=== PATIENT | female | born 1995 | race Caucasian/White ===

== ENCOUNTER 2023-02-23 22:11 | Emergency (ER) | payer BC, SELFPAY ==
[2023-02-23 22:28] VITALS: BP 152/91; PULSE 100; RESP 18; TEMP 36.6; O2SAT 100; BMI 23.9
--- NOTE | 2023-02-23 22:57 | CT_ITS ---
[address] [address] Patient Name: KB LINDER MRN: [id number] date: 1995 Sex: F Assigned Patient Location: ER Current Patient Location: ER Accession/Order Number: [id number] Exam Date: 02/23/2023 23:59 Report Date: 02/24/2023 00:39 At the request of: DERIC MARKER Procedure: CT abdomen pelvis wo con EXAMINATION:CT abdomen pelvis wo con INDICATION:flank pain, vomiting COMPARISON:None TECHNIQUE:Multiple thin section transaxial slices were acquired through the abdomen and pelvis without intravenous contrast. Coronal and sagittal reconstructed images were reviewed. Oral contrastWas not administered. FINDINGS: LOWER CHEST: The lower chest is unremarkable. LIVER: The liver is unremarkable. GALLBLADDER AND BILIARY SYSTEM: No obvious ductal dilation. No calcified stones. SPLEEN: The spleen is unremarkable. PANCREAS: The pancreas is unremarkable. ADRENAL GLANDS: The adrenal glands are unremarkable. KIDNEYS AND URETERS: There is no hydronephrosis of the kidneys.No obstructing urologic calcifications are present. VASCULATURE: Vascularity is unremarkable. There are calcifications in the left hemipelvis which are felt to represent phleboliths. PERITONEUM/RETROPERITONEUM: Peritoneum/retroperitoneum is unremarkable. LYMPH NODES: No suspicious lymphadenopathy. GASTROINTESTINAL TRACT: Nonspecific metallic densities are present in the stomach. The bowel is normal in caliber.No acute inflammatory changes are present in the bowel.The appendix is visualized and is not inflamed. BLADDER: The urinary bladder is unremarkable. REPRODUCTIVE SYSTEM: Reproductive system is unremarkable. BODY WALL: There is a tiny fat-containing umbilical hernia. BONES: There is a large Schmorl's node formation in the superior L4 level. CT/CT abdomen pelvis wo con IMPRESSION: 1. No definitive acute inflammatory process or obstructive uropathy is present in the abdomen or pelvis based on unenhanced CT scan. 2. Nonspecific metallic densities are present in the posterior stomach. Correlate clinically for ingestion of foreign bodies. Electronically authenticated by: ISAC SANTOS Date: 02/24/2023 00:39
--- NOTE | 2023-02-23 22:58 | ECG_ITS ---
[facility] Test Date: 2023-02-23 Pat Name: KB LINDER Department: Room: - Gender: Female Tinner Automatic: : 1995 Requested By: [id number] Order Number: [id number] Reading MD: KATIANA JUAREZ Measurements Intervals [place] Rate: 58 P: 80 [place]: 162 QRS: 85 QRSD: 80 T: 76 QT: 438 QTc: 435 Interpretive Statements 1100 Sinus rhythm 1108 Marked sinus arrhythmia 9130 borderline ECG No previous ECG available for comparison Electronically Signed On 02-24-2023 7:16:37 EST by KATIANA JUAREZ
--- NOTE | 2023-02-23 22:59 | ED.NAVMDI1 ---
HPI - Nausea/Vomiting/Diarrhea General Chief complaint: Nausea/Vomiting/Diarrhea Stated complaint: Vomiting Time Seen by Provider: 02/23/23 22:38 Source: patient Mode of arrival: walk-in Limitations: no limitations History of Present Illness HPI Narrative: This 27-year-old female presents for evaluation of nausea vomiting and diarrhea. She states she has been vomiting a lot today. She states she has a history of liver failure and kidney failure and vomiting is the side effect of her liver and kidney failure. She states she has been admitted to [facility] in the past for these issues but has never been referred to a generator repairer. She states she has never been tested for lupus. She states she is having bilateral flank pain that she describes as kidney pain. She denies any urinary symptoms. She has not had a fever. She states she vomited all day today and had a mild amount of diarrhea. She denies the possibility of . Related Data Allergies Allergy/AdvReac Type Severity Reaction Status Date / Time tetracycline Allergy Mild Verified 02/23/23 22:36 Review of Systems ROS Status of ROS 10 or more systems reviewed and unremarkable except as noted in history and below [facility] Social History Smoking status: Current every day smoker Exam Narrative Exam Narrative: Nurses note and vital signs reviewed and patient is not hypoxic. Blood pressure is elevated at 152/91 General: Tearful, alert, nontoxic female resting comfortably on the stretcher, no respiratory distress Skin: Warm, dry, no pallor noted. There is no rash noted. Head: Normocephalic, atraumatic Eye: Normal conjunctiva, no drainage, EOMI. PERRL Ears, Nose, Mouth, and Throat: oral mucosa is moist. Nares patent. Mouth without vesicles. Cardiovascular: Regular Rate and RhythmS1-S2, no murmurs rubs or gallops, pulses are brisk and equal bilaterally Respiratory: Patient is in no distress, no accessory muscle use, lungs are clear to auscultation, no wheezing, rales or rhonchi Back: non-tender, Bilateral lower flank tenderness, no midline bony vertebral tenderness or step-off GI: Normal bowel sounds, Tenderness in the lower abdomen, no right lower quadrant tenderness, negative McBurney's point tenderness, negative Jay sign, no pulsatile masses appreciated Musculoskeletal: The patient has no evidence of calf tenderness, no pitting edema, symmetrical pulses noted bilaterally Neurological: A&O x4, normal speech Psychiatric: Cooperative Constitutional Vital Signs, click to edit/add: Last Vital Signs Temp 97.9 F 02/23/23 22:28 Pulse 100 H 02/23/23 22:28 Resp 18 02/23/23 22:28 BP 152/91 H 02/23/23 22:28 Pulse Ox 100 02/23/23 22:28 Course Vital Signs Vital signs: Vital Signs Temperature 97.9 F 02/23/23 22:28 Pulse Rate 100 H 02/23/23 22:28 Respiratory Rate 18 02/23/23 22:28 Blood Pressure 152/91 H 02/23/23 22:28 Pulse Oximetry 100 02/23/23 22:28 Temperature 97.9 F 02/23/23 22:28 Pulse Rate 100 H 02/23/23 22:28 Respiratory Rate 18 02/23/23 22:28 Blood Pressure 152/91 H 02/23/23 22:28 Pulse Oximetry 100 02/23/23 22:28 MDM - Nausea/Vomiting/Diarrhea MDM Narrative Medical decision making narrative: This 27-year-old female presents for evaluation of nausea vomiting and mild diarrhea. The patient states she has had similar symptoms in the past and has had kidney failure and liver failure however she has never been referred to a seaport planning manager or generator repairer. The patient's friend who brought her to the emergency department states that she vomited multiple times en route to the hospital. EKG done upon arrival was a sinus rhythm at 58 bpm with sinus arrhythmia. An IV was placed and she is medicated with IV fluids, Zofran and Toradol for pain. Routine labs are reviewed. She has a mildly elevated white count. She has a normal hemoglobin. Her test was negative. Her BUN and creatinine and transaminases are all normal. Her urine tox was positive for marijuana. She complained of bilateral kidney pain and CT scan of the abdomen and pelvis which is included in the body of this report does not show any sign of kidney stones or other notable abnormalities besides possibility of metallic foreign bodies in her posterior stomach. Denied that she has ingested any foreign bodies but has been taking Pepto-Bismol which may be reflected in the CAT scan. She did have recurrence of her vomiting in emergency department and was given a dose of compazine. She requests to be discharged immediately after receiving the compazine but fell asleep and did not have any additional episodes of vomiting. I discussed the cannabinoids hyperemesis syndrome with her. She was encouraged to follow closely with her family physician and avoid use of marijuana products in the future. Medical Records Medical records narrative: The [address] [address] [address] Scan Report Signed Patient: KB LINDER MR#: [id number] : 1995 Acct:[id number] Age/Sex: 27 / F ADM Date: 02/23/23 Loc: ER Attending Dr: Ordering Physician: Ashley Bolivar Date of Service: 02/23/23 Procedure(s): CT abdomen pelvis wo con Accession Number(s): [id number] cc: FABIÁN TORRES ~ [facility] [place] [id number] Patient Name: KB LINDER MRN: [id number] date: 1995 Sex: F Assigned Patient Location: ER Current Patient Location: ER Accession/Order Number: [id number] Exam Date: 02/23/2023 23:59 Report Date: 02/24/2023 00:39 At the request of: ASHLEY BOLIVAR Procedure: CT abdomen pelvis wo con EXAMINATION:CT abdomen pelvis wo con INDICATION:flank pain, vomiting COMPARISON:None TECHNIQUE:Multiple thin section transaxial slices were acquired through the abdomen and pelvis without intravenous contrast. Coronal and sagittal reconstructed images were reviewed. Oral contrastWas not administered. FINDINGS: LOWER CHEST: The lower chest is unremarkable. LIVER: The liver is unremarkable. GALLBLADDER AND BILIARY SYSTEM: No obvious ductal dilation. No calcified stones. SPLEEN: The spleen is unremarkable. PANCREAS: The pancreas is unremarkable. ADRENAL GLANDS: The adrenal glands are unremarkable. KIDNEYS AND URETERS: There is no hydronephrosis of the kidneys.No obstructing urologic calcifications are present. VASCULATURE: Vascularity is unremarkable. There are calcifications in the left hemipelvis which are felt to represent phleboliths. PERITONEUM/RETROPERITONEUM: Peritoneum/retroperitoneum is unremarkable. LYMPH NODES: No suspicious lymphadenopathy. GASTROINTESTINAL TRACT: Nonspecific metallic densities are present in the stomach. The bowel is normal in caliber.No acute inflammatory changes are present in the bowel.The appendix is visualized and is not inflamed. BLADDER: The urinary bladder is unremarkable. REPRODUCTIVE SYSTEM: Reproductive system is unremarkable. BODY WALL: There is a tiny fat-containing umbilical hernia. BONES: There is a large Schmorl's node formation in the superior L4 level. CT/CT abdomen pelvis wo con IMPRESSION: 1. No definitive acute inflammatory process or obstructive uropathy is present in the abdomen or pelvis based on unenhanced CT scan. 2. Nonspecific metallic densities are present in the posterior stomach. Correlate clinically for ingestion of foreign bodies. Electronically authenticated by: ISAC SANTOS Date: 02/24/2023 00:39 Lab Data Attestation: I reviewed the patient's lab results. (labs are normal , Urine tox is positive for marijuana) Labs: Lab Results 02/23/23 02/23/23 Range/Units 22:38 22:44 WBC 11.9 H (4.0-11.0) 10^3/uL RBC 4.65 (4.20-5.40) 10^6/uL Hgb 14.3 (12.0-16.0) g/dL Hct 42.8 (36.0-48.0) % MCV 92.0 (81.0-99.0) fL MCH 30.8 (26.7-34.0) pg MCHC 33.4 (29.9-35.2) g/dL RDW 12.4 (11.0-15.0) % Plt Count 378 (150-450) 10^3/uL MPV 9.9 (9.5-13.5) fL Neut % (Auto) 86.1 H (43.0-75.0) % Lymph % (Auto) 10.8 L (20.5-60.0) % [place] % (Auto) 2.2 (1.7-12.0) % Eos % (Auto) 0.0 L (0.9-7.0) % Baso % (Auto) 0.6 (0.2-2.0) % Neut # (Auto) 10.3 H (1.4-6.5) 10^3/uL Lymph # (Auto) 1.3 (1.2-3.8) 10^3/uL [place] # (Auto) 0.3 (0.3-0.8) 10^3/uL Eos # (Auto) 0.0 (0.0-0.7) 10^3/uL Baso # (Auto) 0.1 (0.0-0.1) 10^3/uL Abs Immat Gran (auto) 0.03 (0.00-0.03) 10^3/uL Imm/Tot Granulo (auto) 0.3 (0.0-0.5) % Sodium 138 (136-145) mmol/L Potassium 4.0 (3.5-5.1) mmol/L Chloride 100 (98-107) mmol/L Carbon Dioxide 27.5 (21.0-32.0) mmol/L Anion Gap 14.5 BUN 13.0 (7.0-18.0) mg/dL Creatinine 0.76 (0.55-1.02) mg/dL Est GFR ( Amer) >60 (>=60) Est GFR (Non-Af Amer) >60 (>=60) BUN/Creatinine Ratio 17.1 Glucose 152 H (74-106) mg/dL Lactate 1.3 (0.4-2.0) mmol/L Calcium 9.0 (8.5-10.1) mg/dL Total Bilirubin 0.5 (0.2-1.0) mg/dL AST 16 (15-37) U/L ALT 18 (14-59) U/L Alkaline Phosphatase 110 (46-116) U/L C-Reactive Protein <0.50 (<=0.50) mg/dL Total Protein 8.8 H (6.4-8.2) g/dL Albumin 4.4 (3.4-5.0) g/dL Globulin 4.4 g/dL Albumin/Globulin Ratio 1.0 Urine Color Yellow (YELLOW) Urine Clarity Clear (CLEAR) Urine pH >=9.0 A (5.0-9.0) Ur Specific [place] 1.010 (1.005-1.025) Urine Protein 100 A (NEG/TRACE) mg/dL Urine Glucose (UA) Negative (NEGATIVE) mg/dL Urine Ketones 40 A (NEGATIVE) mg/dL Urine Occult Blood Negative (NEGATIVE) Urine Nitrite Negative (NEGATIVE) Urine Bilirubin Negative (NEGATIVE) Urine Urobilinogen 0.2 (0.2-1.0) EU/dL Ur Leukocyte Esterase Negative (NEGATIVE) Urine RBC 0-2 (0-2) #/HPF Urine WBC 2-5 A (NONE SEEN) #/HPF Ur Squamous Epith Cells Few A (NONE/RARE) #/LPF Urine Crystals Seen A (None Seen) #/HPF Triple Phos Crystals Few Urine Bacteria Large A (NONE SEEN) #/HPF Urine Casts None seen (NONE SEEN) #/LPF Urine Mucus Large A (NONE SEEN) Urine HCG, Qual Negative (NEGATIVE) Urine Opiates Screen Negative (NEGATIVE) Ur Buprenorphine Scrn Negative (NEGATIVE) Ur Oxycodone Screen Negative (NEGATIVE) Urine Methadone Screen Negative (NEGATIVE) Ur Barbiturates Screen Negative (NEGATIVE) U Tricyclic Antidepress Negative (NEGATIVE) Ur Phencyclidine Scrn Negative (NEGATIVE) Ur Amphetamines Screen Negative (NEGATIVE) U Methamphetamines Scrn Negative (NEGATIVE) U Benzodiazepines Scrn Negative (NEGATIVE) Urine Cocaine Screen Negative (NEGATIVE) U Cannabinoids Screen Positive A (NEGATIVE) ECG Data Attestation: I personally reviewed and interpreted this ECG as follows: (Sinus rhythm with sinus arrhythmia at 58 beats for minute, normal axis, normal intervals, no acute ST segment elevation or T-wave inversion) Discharge Plan Discharge Chief Complaint: Nausea/Vomiting/Diarrhea Clinical Impression: Cannabinoid hyperemesis syndrome, Hyperemesis, Nausea and vomiting Patient Disposition: Home, Self-Care Time of Disposition Decision: 03:13 Condition: Fair Stand Alone Forms: Portal Instructions Referrals: FABIÁN TORRES [Primary Care Provider] - 1 week
[2023-02-23 23:03] LABS: Basophils Absolute Auto 0.1 10^3/uL (0.0-0.1); Basophils Percent Auto 0.6 % (0.2-2.0); Hematocrit 42.8 % (36.0-48.0); Hemoglobin 14.3 g/dL (12.0-16.0); Immature Granulocytes Abs Auto 0.03 10^3/uL (0.00-0.03); Immature Granulocytes Pct Auto 0.3 % (0.0-0.5); Lymphocytes Absolute Auto 1.3 10^3/uL (1.2-3.8); Lymphocytes Percent Auto 10.8 % (20.5-60.0); Mean Corpuscular HGB Conc 33.4 g/dL (29.9-35.2); Mean Corpuscular Hemoglobin 30.8 pg (26.7-34.0); Mean Platelet Volume 9.9 fL (9.5-13.5); Monocytes Absolute Auto 0.3 10^3/uL (0.3-0.8); Monocytes Percent Auto 2.2 % (1.7-12.0); Neutrophils Absolute Auto 10.3 10^3/uL (1.4-6.5); Neutrophils Percent Auto 86.1 % (43.0-75.0); Platelet Count 378 10^3/uL (150-450); Red Blood Count 4.65 10^6/uL (4.20-5.40); Red Cell Distribution Width 12.4 % (11.0-15.0); White Blood Count 11.9 10^3/uL (4.0-11.0)
[2023-02-23 23:06] LABS: Bilirubin Urine NEGATIVE (NEGATIVE); Blood Urine NEGATIVE (NEGATIVE); Clarity Urine CLEAR (CLEAR); Color Urine YELLOW (YELLOW); Glucose Urine UA NEGATIVE (NEGATIVE); Ketones Urine 40 mg/dL (NEGATIVE); Leukocyte Esterase Urine NEGATIVE (NEGATIVE); Nitrite Urine NEGATIVE (NEGATIVE); Protein Urine 100 mg/dL (NEG/TRACE); Urobilinogen Urine 0.2 EU/dL (0.2-1.0); pH Urine >=9.0 (5.0-9.0)
[2023-02-23 23:07] LABS: HCG Qualitative Urine* NEGATIVE (NEGATIVE)
[2023-02-23 23:13] LABS: Alanine Aminotransferase 18 U/L (14-59); Albumin Level 4.4 g/dL (3.4-5.0); Alkaline Phosphatase 110 U/L (46-116); Anion Gap 14.5; Aspartate Amino Transferase 16 U/L (15-37); BUN Creatinine Ratio 17.1; Bilirubin Total 0.5 mg/dL (0.2-1.0); Carbon Dioxide 27.5 mmol/L (21.0-32.0); Chloride 100 mmol/L (98-107); Estimated GFR (African America >60 (>=60); Estimated GFR (Non-African Ame >60 (>=60); Globulin 4.4 g/dL; Glucose 152 mg/dL (74-106); Sodium 138 mmol/L (136-145); Total Protein 8.8 g/dL (6.4-8.2)
[2023-02-23 23:15] LABS: Bacteria Urine LARGE #/HPF (NONE SEEN); Crystals Seen? Seen #/HPF (None Seen); Mucus Urine LARGE (NONE SEEN); RBC Urine 0-2 #/HPF (0-2); Squamous Epithelial Cell Urine FEW #/LPF (NONE/RARE)
[2023-02-23 23:16] LABS: Lactate/Lactic Acid 1.3 mmol/L (0.4-2.0)
[2023-02-23 23:17] LABS: Cast Seen? NONE SEEN #/LPF (NONE SEEN); Triple Phosphate Crystal Urine FEW
[2023-02-23 23:19] LABS: C Reactive Protein <0.50 mg/dL (<=0.50)
[2023-02-23 23:21] LABS: Amphetamine Screen Urine NEGATIVE (NEGATIVE); Barbiturates Screen Urine NEGATIVE (NEGATIVE); Benzodiazepines Screen Urine NEGATIVE (NEGATIVE); Buprenorphine Screen Urine NEGATIVE (NEGATIVE); Cannabinoid Screen Urine POSITIVE (NEGATIVE); Cocaine Screen Urine NEGATIVE (NEGATIVE); Methadone Screen Urine NEGATIVE (NEGATIVE); Methamphetamines Screen Urine NEGATIVE (NEGATIVE); Opiate Screen Urine NEGATIVE (NEGATIVE); Oxycodone Screen Urine NEGATIVE (NEGATIVE); Phencyclidine Screen Urine NEGATIVE (NEGATIVE); Tricyclic Antidepressant Urine NEGATIVE (NEGATIVE)
[2023-02-23] MEDS: ONDANSETRON PF 4 MG/2 ML VIAL IV (23:28)
[2023-02-23] MEDS: 0.9 % SODIUM CHLORIDE 1,000 ML 1000 ML IV (23:28)
[2023-02-23] MEDS: FAMOTIDINE/PF 20 MG/2 ML VIAL IV (23:28)
[2023-02-23] MEDS: KETOROLAC TROMETHAMINE 30 MG/ML VIAL IVP (23:59)
[2023-02-24] MEDS: DEXTROSE 5%-LACTATED RINGERS 1,000 ML 1000 ML IV (01:40)
[2023-02-24] MEDS: PROCHLORPERAZINE 10 MG/2 ML VIAL IV (01:40)
== END 2023-02-24 03:18 | disposition home or self-care (01) ==
PROVIDERS: Emergency Provider Emergency Medicine; PCP Family Medicine
DX: R11.2 Nausea with vomiting, unspecified (principal); F12.90 Cannabis use, unspecified, uncomplicated; F17.210 Nicotine dependence, cigarettes, uncomplicated
CPT/HCPCS: 36415; 74176; 80053; 80307; 81001; 83605; 84703; 85025; 86140; 93005; 96361; 96374; 96375; 99285